=== PATIENT | male | born 1980 | race Two or more races ===

== ENCOUNTER 2019-02-10 22:14 | Emergency (ER) | payer OTHER ==
--- NOTE | 2019-02-10 23:17 | RADIOLOGY REPORT (SQ) ---
EXAM DESCRIPTION: XR CHEST 2 VIEWS COMPLETED DATE/TME: 02/10/2019 00:00 CLINICAL HISTORY: 38 years Male cp COMPARISON: None. FINDINGS: The cardiomediastinal silhouette appears unremarkable. No consolidating infiltrates or pleural effusions. No pneumothorax. IMPRESSION: No acute abnormality is identified.
--- NOTE | 2019-02-10 23:31 | EKG REPORT ---
SEVERITY:- NORMAL ECG - SINUS RHYTHM : Confirmed by: Cely Cruz MD 10-Feb-2019 23:30:33
[2019-02-10] MEDS: NITROGLYCERIN 0.4 MG/TAB 25 TAB/BOTTLE SL PRN ×2 (23:51→23:59)
[2019-02-11 00:01] LABS: ABSOLUTE EOSINOPHILS # (AUTO) 0.2 10^3/uL (0.0-0.6); ABSOLUTE LYMPHOCYTES (AUTO) 1.7 10^3/uL (0.5-4.7); ABSOLUTE MONOCYTES (AUTO) 0.5 10^3/uL (0.1-1.4); ABSOLUTE NEUT (AUTO) 3.2 10^3/uL (1.7-8.2); BASOPHILS % (AUTO) 0.4 % (0-2); HEMATOCRIT 42.8 % (37.9-51.0); HEMOGLOBIN 14.9 g/dL (13.5-17.0); MEAN CORPUSCULAR HEMOGLOBIN 31.2 pg (27.0-33.4); MEAN CORPUSCULAR HGB CONC 34.8 g/dL (32.0-36.0); MEAN CORPUSCULAR VOLUME 90 fl (80-97); MONOCYTES % (AUTO) 8.1 % (3-13); PLATELET COUNT 187 10^3/uL (150-450); RED BLOOD COUNT 4.78 10^6/uL (4.35-5.55); RED CELL DISTRIBUTION WIDTH 13.3 % (11.5-14.0); SEGMENTED NEUTROPHILS % (AUTO) 57.5 % (42-78); TOTAL CELLS COUNTED % (AUTO) 100 %; WHITE BLOOD COUNT 5.6 10^3/uL (4.0-10.5)
[2019-02-11] MEDS: NITROGLYCERIN 0.4 MG/TAB 25 TAB/BOTTLE SL PRN (00:04)
[2019-02-11 00:11] LABS: INTERNATIONAL RATION (INR) 0.91; PROTHROMBIN TIME 12.2 SEC (11.4-15.4)
[2019-02-11] MEDS ORDERED: MORPHINE SULFATE 10 MG/ML INJ IV ONE ×2 (00:13→00:59)
[2019-02-11] MEDS ORDERED: NITROGLYCERIN 2% OINTMENT 1 GM PACKET TP ONE (00:13)
[2019-02-11] MEDS ORDERED: ACETAMINOPHEN 325 MG TABLET PO ONE (00:13)
[2019-02-11 00:18] LABS: ALBUMIN 4.5 g/dL (3.5-5.0); ALKALINE PHOSPHATASE 93 U/L (38-126); ANION GAP 11 (5-19); ASPARTATE AMINO TRANSFERASE 24 U/L (17-59); BILIRUBIN,DIRECT 0.2 mg/dL (0.0-0.4); BILIRUBIN,TOTAL 0.5 mg/dL (0.2-1.3); BLOOD UREA NITROGEN 12 mg/dL (7-20); CALCIUM 9.8 mg/dL (8.4-10.2); CARBON DIOXIDE 25 mmol/L (22-30); CHLORIDE 106 mmol/L (98-107); CREATINE KINASE 66 U/L (55-170); GLUCOSE 99 mg/dL (75-110); POTASSIUM 4.1 mmol/L (3.6-5.0); TOTAL PROTEIN 7.9 g/dL (6.3-8.2)
[2019-02-11 00:30] LABS: CREATINE KINASE MB 0.46 ng/mL (<4.55)
[2019-02-11 00:31] LABS: TROPONIN I < 0.012 ng/mL
--- NOTE | 2019-02-11 01:09 | ER Document Report ---
ED Cardiac - General TRAVEL OUTSIDE OF THE [place] IN LAST 30 DAYS: No - Related Data Home Medications: asa 81 mg metoprolol 12.5 mg bid. zoloft 100 mg qday lisinopril 5 mg qday. seroquel 100 mh qday xanax 1 mg tid prn. depakote 500 mg q dqay. olazipine 5 mg qday. prilosec 40 mg qday. lyrica 200 mg bid <PRASHANT JADE - Last Filed: 02/11/19 07:30> <MALINA MCNAIR - Last Filed: 02/11/19 09:17> - General Chief Complaint: Chest Pain Stated Complaint: CHEST PAIN Time Seen by Provider: 02/10/19 23:02 Notes: Patient is a 38-year-old male history of hypertension, hyperlipidemia, coronary artery disease, open heart surgery for aortic valve replacement x2 presents to the emergency department for pressure in the left side of his chest. States his pressure started around 2100 hrs. while he was attempting to go to sleep. States the pain radiates to his left jaw and left arm. States he did take 3 sublingual nitroglycerin at home which initially helped his pain but the pain returned. States he also took 324 mg of p.o. aspirin. States based on his medical history he typically has 5 out of 10 chest pain on a daily basis. States the pain was up to an 8 out of 10 which is why he presented to the emergency room. Voices his last cardiac catheterization was in March 2017, states his last stress test was in February 2018. States his cardiac catheterization did state he had 50% blockage in 2 arteries but states no stents were placed. Medications: Metoprolol, lisinopril, nitroglycerin, Seroquel, Depakote, aspirin, Prilosec, Zoloft, Xanax, Lyrica (PRASHANT JADE) - Related Data Allergies/Adverse Reactions: adhesive tape Allergy (Verified 02/10/19 23:50) Past Medical History - General Information source: Patient - Social History Smoking Status: Never Smoker Frequency of alcohol use: None Drug Abuse: None Family History: CAD, Hyperlipidemia, Hypertension Patient has suicidal ideation: No Patient has homicidal ideation: No - Past Medical History Cardiac Medical History: Reports: Hx Hypercholesterolemia, Hx Hypertension GI Medical History: Reports: Hx Gastroesophageal Reflux Disease Psychiatric Medical History: Reports: Hx Bipolar Disorder, Hx Depression Past Surgical History: Reports: Hx Cardiac Catheterization <DOLLY JADEYANELI - Last Filed: 02/11/19 07:30> Review of Systems - Review of Systems Constitutional: denies: Fever EENT: No symptoms reported Cardiovascular: See HPI Respiratory: No symptoms reported Gastrointestinal: No symptoms reported Genitourinary: No symptoms reported Male Genitourinary: No symptoms reported Musculoskeletal: No symptoms reported Skin: No symptoms reported Hematologic/Lymphatic: No symptoms reported Neurological/Psychological: No symptoms reported <PRASHANT JADE - Last Filed: 02/11/19 07:30> Physical Exam - Vital signs Vitals: Temp Pulse Resp BP Pulse Ox 98.1 F 69 20 121/71 98 02/10/19 22:34 02/10/19 22:34 02/10/19 22:34 02/10/19 22:34 02/10/19 22:34 Course - Laboratory Result Diagrams: 02/10/19 23:42 02/10/19 23:42 <PRASHANT JADE - Last Filed: 02/11/19 07:30> - Laboratory Result Diagrams: 02/10/19 23:42 02/10/19 23:42 <MALINA MCNAIR - Last Filed: 02/11/19 09:17> - Re-evaluation Re-evalutation: Patient's initial troponin was negative, EKG shows sinus rhythm rate of 67, QTc 406, no ST segment elevations or depressions noted. Pts pain is down to 5/10 with SL Nitro, Nitro paste and Morphine x 2. I discussed this case with hospitalist Dr. Banks who is recommending I speak with cardiology to see if they can do a cardiac catheterization if needed. I have then discussed this case with field staff Dr. Cruz who stating the patient should be transferred to another facility as he is not comfortable with him staying at this facility. I have then paged [facility], currently awaiting on a return phone call. 02/11/19 01:32 Patient voices that he does takes Xanax 3 times a day for anxiety. States he feels very anxious knowing that he is going to have to be transferred to another hospital. I have ordered Ativan for the patient at this time. 11/14/19 01:53 I have spoken with Dr. Tobin, cardiology at [facility] who will accept the Pt. to their facility. Pt. remains with 5/10 pain at this time. States typically he always has 5/10 pain on a daily basis. Then states, "unless you want to give me some more good stuff and get my pain down to 0/10?" I then asked the pt. if he means he wants some more morphine and he states, "well that is up to you!" I have discussed with him that if his daily pain is at a 5/10 and we not have him down to a 5/10, I do not feel as though Morphine is indicated. 02/11/19 04:27 Nurse brings to my attention at this time the patient's pain is back to an 8 out of 10. I have ordered a repeat EKG. Spoke with my attending Dr Estrada who is suggesting a Nitro drip. Upon my re-examination the pt. is playing a game on his cell phone, in NAD. Pt. is stating that "usually they give me more morphine." He is stating that he has never been on a Nitro drip in the past. States, "sometimes they have to give me dilaudid to help the pain." 02/11/19 04:33 I have re-paged [facility] to discuss return of pt pain. Transport center stated that they are currently working on a bed assigment. Stated that if I have a question for cardiology she would page them, but that the bed with which the Pt. is going to can handle a nitro drip. Repeat EKG shows sinus bradycardia rate of 56, QTc 417, no ST segment elevations or depressions noted. No change from previous EKG. Patient's delta troponin was negative. Nitro drip started at 2.5 based on BP. 1 liter of fluid ordered as well. 02/11/19 05:40 Pt. continues with pain, Nitro drip raised to 5 as pts BP is stable. (PRASHANT JADE) Patient evaluated at bedside with JUANY Howell at 0815. Vitals stable, patient is in no distress. Afebrile. Patient is not complaining of any worsening pain at this time. Patient is requesting Ativan for transfer due to his concerns of worsening anxiety with his chest pain transport is in route. 0915: Patient evaluated at bedside, states he does feel anxious about t ransporting for an hour and a half to violent. Vitals are stable. Patient is stable for transport, patient was agreeable with plan of care to be transported. (MALINA MCNAIR) - Vital Signs Vital signs: Temp Pulse Resp BP Pulse Ox 98.2 F 55 L 12 114/74 95 02/11/19 05:50 02/11/19 04:46 02/11/19 09:01 02/11/19 09:01 02/11/19 09:01 - Laboratory Laboratory results interpreted by me: 02/10/19 23:42 Creatinine 1.36 H Est GFR (MDRD) Non-Af 58 L Discharge - Discharge Admitting Provider: Dr. Tobin <PRASHANT JADE - Last Filed: 02/11/19 07:30> <MALINA MCNAIR - Last Filed: 02/11/19 09:17> - Discharge Clinical Impression: Chest pain Qualifiers: Chest pain type: unspecified Qualified Code(s): R07.9 - Chest pain, unspecified Condition: Stable Disposition: [facility]
[2019-02-11] MEDS ORDERED: LORAZEPAM INJ 2 MG/1 ML VIAL IV ONE ×2 (01:43→09:15)
[2019-02-11] MEDS ORDERED: NITROGLYCERIN/D5W 50 MG/250 ML RTUINJ IV PRN (04:31)
[2019-02-11] MEDS ORDERED: NORMAL SALINE 1000 ML 1,000 ML IV ONE (04:40)
[2019-02-11 09:35] VITALS: BP 113/82
--- NOTE | 2019-02-11 09:52 | EKG REPORT ---
SEVERITY:- NORMAL ECG - SINUS RHYTHM : Confirmed by: Cely Cruz MD 11-Feb-2019 09:52:10
--- NOTE | 2019-02-11 20:15 | EKG REPORT ---
SEVERITY:- NORMAL ECG - SINUS RHYTHM : Confirmed by: Cely Cruz MD 11-Feb-2019 20:14:37
== END 2019-02-11 09:38 | disposition short-term general hospital (02) ==
LOC: ER 22:14
DX: R07.9 Chest pain, unspecified (principal); I10 Essential (primary) hypertension; E78.5 Hyperlipidemia, unspecified; F41.9 Anxiety disorder, unspecified; I25.10 Atherosclerotic heart disease of native coronary artery without angina pectoris; Z95.4 Presence of other heart-valve replacement
CPT/HCPCS: 93005 ×2; 36415; 82553; 82550; 85025; 85610; 80053; 84484; 71046; 93010 ×2; J2270; J2060; J3490; J7030